=== PATIENT | male | born 2000 | race Two or more races ===

== ENCOUNTER 2019-04-12 07:17 | Emergency (ER) | payer BC, OTHER ==
[~2019-04-12] VITALS: Ht 175.3 cm; Wt 68.0 kg
[2019-04-12 07:39] VITALS: BP 124/77
== END 2019-04-12 10:05 | disposition home or self-care (01) ==
LOC: ER 07:17
DX: R51 Headache (principal); W22.8XXA Striking against or struck by other objects, initial encounter; Y93.89 Activity, other specified; Y92.89 Other specified places as the place of occurrence of the external cause; Y99.0 Civilian activity done for income or pay
CPT/HCPCS: 70450